=== PATIENT | female | born 1945 | race Caucasian/White ===

== ENCOUNTER → 2020-03-06 | Outpatient (CLI) | payer MEDICARE | END | disposition home or self-care (01) | LOC: RAH 13:55 | PROVIDERS: ATTEND Chiropractor | DX: I67.82 Cerebral ischemia (principal); G43.911 Migraine, unspecified, intractable, with status migrainosus; G31.89 Other specified degenerative diseases of nervous system ==

== ENCOUNTER → 2020-04-06 | Outpatient (CLI) | payer MEDICARE | END | disposition home or self-care (01) | LOC: RAH 13:27 | PROVIDERS: ATTEND Chiropractor | DX: H81.10 Benign paroxysmal vertigo, unspecified ear (principal); I67.9 Cerebrovascular disease, unspecified; G40.909 Epilepsy, unspecified, not intractable, without status epilepticus; R51 Headache; G52.9 Cranial nerve disorder, unspecified | CPT/HCPCS: 70544 ==